=== PATIENT | male | born 1990 | race Caucasian/White ===

== ENCOUNTER 2017-01-20 20:28 | Emergency (ER) | payer BC ==
[~2017-01-20] VITALS: Ht 167.6 cm; Wt 86.4 kg
[~2017-01-20 20:28] MED LIST: ALLEGRA-D 12 HO1 TER PO
[2017-01-20 20:30] VITALS: BP 147/90; TEMP 97.3
[2017-01-20] MEDS ORDERED: ALLEGRA-D 24HR1 T24 PO (20:48)
[2017-01-20] MEDS ORDERED: NORCO 325 MG-51 TAB PO (21:34)
[2017-01-20] MEDS ORDERED: CRUTCHES MC (21:34)
[2017-01-20 21:54] VITALS: PULSE 95
== END 2017-01-20 21:54 | disposition home or self-care (01) ==
LOC: COL.ER 20:28
DX: M25.561 Pain in right knee (principal); X50.9XXA Other and unspecified overexertion or strenuous movements or postures, initial encounter; Y93.64 Activity, baseball